=== PATIENT | female | born 1955 | race Two or more races ===

== ENCOUNTER 2024-02-25 09:22 | Inpatient (IN) | payer MEDICAID, OTHER ==
[~2024-02-25] VITALS: Ht 149.9 cm; Wt 61.8 kg
[2024-02-25 10:24] LABS: Urine Bacteria FEW /hpf (None Seen); Urine Blood Negative /uL (Negative); Urine Clarity Turbid (Clear); Urine Color Yellow (Yellow); Urine Hyaline Cast FEW /lpf (0 - 2); Urine Mucus FEW (None Seen); Urine Protein, UAD 3+ (Negative); Urine Specific Gravity 1.023 (1.001-1.035); Urine Urobilinogen Normal (Negative); Urine WBC 76 /hpf (0 - 5); Urine WBC Clumps PRESENT /hpf (None Seen)
[2024-02-25 10:54] LABS: Basophils # (auto) 0 10 ^3/uL (0-0.2); Basophils % (auto) 0.3 % (0.0-2.0); Eosinophils # (auto) 0 10 ^3/uL (0-0.8); Eosinophils % (auto) 0.7 % (0.0-7.0); Hematocrit 47.2 % (36.0-46.0); Hemoglobin 16.6 g/dL (12.2-16.2); Lymphocytes # (auto) 1.7 10 ^3/uL (0.4-5.4); Lymphocytes % (auto) 25.6 % (10.0-50.0); Mean Corpuscular Hemoglobin 31.5 pg (28.0-32.0); Mean Corpuscular Hgb Conc. 35.2 g/dL (32.0-36.0); Mean Corpuscular Volume 89.5 fL (80.0-100.0); Monocytes # (auto) 0.8 10 ^3/uL (0-1.3); Monocytes % (auto) 12.2 % (0.0-12.0); Neutrophils % (auto) 61.2 % (37.0-80.0); Nucleated Red Blood Cells % 0.2 %; Platelet Count (auto) 254 10^3/uL (140-450); Red Blood Cells 5.27 10^6/uL (4.0-5.20); White Blood Cell 6.6 10^3/uL (4.4-10.8)
[2024-02-25] MEDS: SODIUM CHLORIDE 0.9% 1,000 ML IV ONE (10:59)
[2024-02-25] MEDS: ONDANSETRON HCL 4 MG/2 ML VIAL IV ONE (11:03)
[2024-02-25 11:06] LABS: Chloride 102 mmol/L (98-107); Potassium 3.1 mmol/L (3.5-5.1); Sodium 137 mmol/L (136-145)
[2024-02-25 11:07] LABS: Anion Gap 8 (5-15); Carbon Dioxide 27 mmol/L (20-31)
[2024-02-25 11:12] LABS: BUN/Creatinine Ratio 7.4 (10.0-20.0); Blood Urea Nitrogen 7 mg/dL (9-23); Glucose 178 mg/dL (74-106)
[2024-02-25] MEDS ORDERED: DOCUSATE SOD 100 MG CAP PO PRN (17:15)
[2024-02-25] MEDS ORDERED: DEXTROSE (50%) 50ML SYRG IV PRN (17:15)
[2024-02-25] MEDS ORDERED: NITROGLYCERIN 0.4 MG SL TAB SL PRN (17:15)
[2024-02-25 17:33] LABS: Phosphorus 3.1 mg/dL (2.4-5.1)
[2024-02-25] MEDS: ACCU-CHEK COMFORT CURVE STRIP VI SCH (18:00)
[2024-02-25] MEDS: SODIUM CHLORIDE 0.9% 1,000 ML IV SCH (19:09)
[2024-02-25] MEDS: ONDANSETRON HCL 4 MG/2 ML VIAL IV PRN (19:15)
[2024-02-25] MEDS: PANTOPRAZOLE 40 MG/10 ML VIAL INJ IV ONE (19:15)
[2024-02-25] MEDS: POTASSIUM EFFERVESENT TAB 25 MEQ PO ONE (19:15)
[2024-02-25] MEDS: cefTRIAXone 1GM/50ML D5W 50 ML IV ONE (19:16)
[2024-02-25] MEDS: InsuLIN REG 1unit/0.01ml Soln (100units/ml) SC SCH (19:44)
[2024-02-25 19:50] VITALS: PULSE 71; RESP 16; O2SAT 94
[2024-02-25 22:00] VITALS: BP_SYST 123; BP_DIAS 51; BP_DIAS 57; PULSE 63; RESP 18; TEMP 98.4; O2SAT 93
[2024-02-25] MEDS: SUCRALFATE 1 GM/10 ML ORAL SUSP PO SCH (22:17)
[2024-02-25] MEDS ORDERED: METF-370 PO (23:05)
[2024-02-26 01:01] VITALS: BP 111/51; PULSE 60; RESP 18; TEMP 97.9; O2SAT 92
[2024-02-26 04:47] VITALS: BP 133/54; PULSE 60; RESP 19; TEMP 97.8; O2SAT 92
[2024-02-26 06:55] LABS: Basophils # (auto) 0 10 ^3/uL (0-0.2); Basophils % (auto) 0.3 % (0.0-2.0); Eosinophils # (auto) 0.1 10 ^3/uL (0-0.8); Eosinophils % (auto) 1.5 % (0.0-7.0); Hematocrit 38.8 % (36.0-46.0); Hemoglobin 13.3 g/dL (12.2-16.2); Lymphocytes # (auto) 2.2 10 ^3/uL (0.4-5.4); Lymphocytes % (auto) 31.4 % (10.0-50.0); Mean Corpuscular Hemoglobin 30.4 pg (28.0-32.0); Mean Corpuscular Hgb Conc. 34.2 g/dL (32.0-36.0); Monocytes # (auto) 0.9 10 ^3/uL (0-1.3); Monocytes % (auto) 13.1 % (0.0-12.0); Neutrophils # (auto) 3.7 10 ^3/uL (1.6-8.6); Neutrophils % (auto) 53.7 % (37.0-80.0); Platelet Count (auto) 226 10^3/uL (140-450); Red Blood Cells 4.35 10^6/uL (4.0-5.20); Red Cell Distribution Width 13.9 % (11.8-14.3)
[2024-02-26 07:18] LABS: Alanine Aminotransferase 12 U/L (7-40); Albumin 3.5 g/dL (3.2-4.8); Alkaline Phosphatase 75 U/L (46-116); Anion Gap 6 (5-15); Aspartate Aminotransferase 14 U/L (13-40); BUN/Creatinine Ratio 11.3 (10.0-20.0); Blood Urea Nitrogen 8 mg/dL (9-23); Calcium 8.7 mg/dL (8.7-10.4); Carbon Dioxide 27 mmol/L (20-31); Chloride 108 mmol/L (98-107); Glucose 141 mg/dL (74-106); Potassium 3.5 mmol/L (3.5-5.1); Sodium 141 mmol/L (136-145)
[2024-02-26 07:19] LABS: Bilirubin, Total 0.4 mg/dL (0.2-1.0); Total Protein 5.6 g/dL (5.7-8.2)
[2024-02-26 09:00] VITALS: BP 107/51; PULSE 58; RESP 18; TEMP 97.9; O2SAT 92
[2024-02-26] MEDS: cefTRIAXone 1GM/50ML D5W 50 ML IV SCH (09:38)
[2024-02-26] MEDS: PANTOPRAZOLE 40 MG/10 ML VIAL INJ IV SCH (09:38)
[2024-02-26 12:50] VITALS: BP 114/50; PULSE 61; RESP 20; TEMP 98.1; O2SAT 92
[2024-02-26] MEDS: ACETAMINOPHEN 500 MG TAB PO PRN (14:08)
[2024-02-26] MEDS: AZITHROMYCIN 250 MG TAB PO ONE (15:50)
[2024-02-26 17:00] VITALS: BP 143/58; PULSE 59; RESP 20; TEMP 97.5; O2SAT 94
[2024-02-26 22:00] VITALS: BP 158/74; PULSE 75; RESP 15; TEMP 97.1; O2SAT 95
[2024-02-27] VITALS (14 sets, daily range): BP systolic 131–193; BP diastolic 52–75; PULSE 57–80; RESP 14–27; TEMP 97.3–98.5; O2SAT 91–98
[2024-02-27 07:25] LABS: Basophils # (auto) 0 10 ^3/uL (0-0.2); Basophils % (auto) 0.4 % (0.0-2.0); Eosinophils # (auto) 0.1 10 ^3/uL (0-0.8); Eosinophils % (auto) 1.5 % (0.0-7.0); Hematocrit 38.8 % (36.0-46.0); Hemoglobin 13.4 g/dL (12.2-16.2); Lymphocytes # (auto) 2.2 10 ^3/uL (0.4-5.4); Lymphocytes % (auto) 33.3 % (10.0-50.0); Mean Corpuscular Hemoglobin 31.5 pg (28.0-32.0); Mean Corpuscular Hgb Conc. 34.7 g/dL (32.0-36.0); Mean Corpuscular Volume 90.8 fL (80.0-100.0); Monocytes # (auto) 0.7 10 ^3/uL (0-1.3); Monocytes % (auto) 10.5 % (0.0-12.0); Neutrophils # (auto) 3.6 10 ^3/uL (1.6-8.6); Neutrophils % (auto) 54.3 % (37.0-80.0); Nucleated Red Blood Cells % 0.1 %; Platelet Count (auto) 238 10^3/uL (140-450); Red Blood Cells 4.27 10^6/uL (4.0-5.20); White Blood Cell 6.7 10^3/uL (4.4-10.8)
[2024-02-27 07:39] LABS: Anion Gap 6 (5-15); Carbon Dioxide 27 mmol/L (20-31); Chloride 110 mmol/L (98-107); Potassium 3.8 mmol/L (3.5-5.1); Sodium 143 mmol/L (136-145)
[2024-02-27 07:40] LABS: Calcium 8.9 mg/dL (8.7-10.4)
[2024-02-27 07:45] LABS: Glucose 136 mg/dL (74-106)
[2024-02-27 07:47] LABS: BUN/Creatinine Ratio 8.2 (10.0-20.0); Blood Urea Nitrogen < 5 mg/dL (9-23)
[2024-02-27] MEDS: AZITHROMYCIN 250 MG TAB PO SCH (09:48)
[2024-02-27] MEDS: MORPHINE SULFATE INJ 2 MG/ml SYRG IV PRN (11:45)
[2024-02-27] MEDS ORDERED: hydrALAZINE HCL 20 MG/ML VL IV PRN (12:45)
[2024-02-27] MEDS: hydrALAZINE HCL 20 MG/ML VL IV ONE (13:42)
[2024-02-27] MEDS: ATORVASTATIN 20 MG TAB PO ONE (15:14)
[2024-02-27] MEDS: ASPirin 81 mg TAB PO ONE (15:14)
[2024-02-27] MEDS ORDERED: cloNIDine 0.1 mg/24hr 7 DAY PATCH TD SCH (15:15)
[2024-02-27] MEDS: ENOXAPARIN SOD 80 MG/0.8ML SYRINGE SC ONE (15:15)
[2024-02-27] MEDS: amLODIPine BESYLATE 5 MG TAB PO SCH (17:48)
[2024-02-27] MEDS: LOSARTAN POTASSIUM 50 MG TAB PO SCH (17:49)
[2024-02-27] MEDS: ATORVASTATIN 20 MG TAB PO SCH (21:38)
[2024-02-27] MEDS: ENOXAPARIN SOD 80 MG/0.8ML SYRINGE SC SCH (21:38)
[2024-02-28] VITALS (23 sets, daily range): BP systolic 113–145; BP diastolic 52–64; PULSE 51–101; RESP 12–27; TEMP 97.3–98.6; O2SAT 91–99
[2024-02-28 04:28] LABS: Basophils # (auto) 0 10 ^3/uL (0-0.2); Basophils % (auto) 0.4 % (0.0-2.0); Eosinophils # (auto) 0.1 10 ^3/uL (0-0.8); Eosinophils % (auto) 1.4 % (0.0-7.0); Hematocrit 40.1 % (36.0-46.0); Hemoglobin 13.5 g/dL (12.2-16.2); Lymphocytes # (auto) 2.2 10 ^3/uL (0.4-5.4); Lymphocytes % (auto) 30.3 % (10.0-50.0); Mean Corpuscular Hemoglobin 30.1 pg (28.0-32.0); Mean Corpuscular Hgb Conc. 33.6 g/dL (32.0-36.0); Mean Corpuscular Volume 89.4 fL (80.0-100.0); Monocytes # (auto) 0.7 10 ^3/uL (0-1.3); Neutrophils # (auto) 4.3 10 ^3/uL (1.6-8.6); Neutrophils % (auto) 58.9 % (37.0-80.0); Platelet Count (auto) 270 10^3/uL (140-450); Red Blood Cells 4.49 10^6/uL (4.0-5.20); Red Cell Distribution Width 13.9 % (11.8-14.3); White Blood Cell 7.3 10^3/uL (4.4-10.8)
[2024-02-28 04:46] LABS: INR 1.13 (0.9-1.15); Partial Thromboplastin Time 34.8 SEC (24.5-34.5); Prothrombin Time 11.9 sec (9.3-11.8)
[2024-02-28 04:49] LABS: Alanine Aminotransferase 14 U/L (7-40); Alkaline Phosphatase 79 U/L (46-116); Anion Gap 6 (5-15); Aspartate Aminotransferase 29 U/L (13-40); Calcium 9.2 mg/dL (8.7-10.4); Carbon Dioxide 28 mmol/L (20-31); Chloride 109 mmol/L (98-107); Glucose 162 mg/dL (74-106); Potassium 3.1 mmol/L (3.5-5.1); Sodium 143 mmol/L (136-145)
[2024-02-28 04:50] LABS: Bilirubin, Total 0.5 mg/dL (0.2-1.0)
[2024-02-28 04:59] LABS: BUN/Creatinine Ratio 8.5 (10.0-20.0); Blood Urea Nitrogen < 5 mg/dL (9-23)
[2024-02-28 05:21] LABS: Albumin 3.7 g/dL (3.2-4.8)
[2024-02-28] MEDS: POTASSIUM CHL 20MEQ/100ML 100 ML IV ONE (07:08)
[2024-02-28 09:01] LABS: Hepatitis B Surface Antigen Negative (Negative)
[2024-02-28 09:22] LABS: Hepatitis C Antibody Negative (Negative)
[2024-02-28] MEDS: ASPirin 81 mg TAB PO SCH (10:08)
[2024-02-28] MEDS: HEPARIN IN NS 1000Units/500mL 1,500 ML ONE (10:56)
[2024-02-28] MEDS: IODIXANOL 320MG/ML 100ML BTL IV ONE (10:56)
[2024-02-28] MEDS: POTASSIUM CHLORIDE 20 MEQ, LIDOCAINE 1% (LOCAL ANESTH.) 2 ML in SODIUM CHL 0.9% 100 ML IV ONE (12:13)
[2024-02-28] MEDS: VERAPAMIL 2.5MG/ML INJ 2ML VIAL IV ONE (13:04)
[2024-02-28] MEDS: fentaNYL CITRATE 100 MCG/2 ML VL ONE (13:04)
[2024-02-28] MEDS: ANGIOMAX 250 MG VIAL IV ONE (13:04)
[2024-02-28] MEDS: LIDOCAINE 2%HCL (LOCAL ANESTH.) INJ 20ML MDV ONE (13:05)
[2024-02-28] MEDS: SODIUM CHL 0.9% 0 ML ONE (13:05)
[2024-02-28] MEDS: HEPARIN SODIUM (PORCINE) 5000 UNITS/ML 1ML VIAL ONE (13:05)
[2024-02-28] MEDS: MIDAZOLAM HCL 2MG/2ML 2ml VIAL (1mg/ml) ONE (13:05)
[2024-02-28] MEDS: CLOPIDOGREL BISULFATE 75 MG TAB PO ONE (16:36)
[2024-02-29 05:00] VITALS: BP 142/62; PULSE 74; RESP 21; TEMP 98.2; O2SAT 98
[2024-02-29 06:34] LABS: Basophils # (auto) 0 10 ^3/uL (0-0.2); Basophils % (auto) 0.4 % (0.0-2.0); Eosinophils # (auto) 0.1 10 ^3/uL (0-0.8); Eosinophils % (auto) 1.2 % (0.0-7.0); Hematocrit 41.7 % (36.0-46.0); Hemoglobin 14.2 g/dL (12.2-16.2); Lymphocytes # (auto) 2.5 10 ^3/uL (0.4-5.4); Lymphocytes % (auto) 27.2 % (10.0-50.0); Mean Corpuscular Hemoglobin 30.4 pg (28.0-32.0); Mean Corpuscular Volume 89.5 fL (80.0-100.0); Monocytes # (auto) 0.7 10 ^3/uL (0-1.3); Monocytes % (auto) 7.9 % (0.0-12.0); Neutrophils # (auto) 5.8 10 ^3/uL (1.6-8.6); Neutrophils % (auto) 63.3 % (37.0-80.0); Platelet Count (auto) 310 10^3/uL (140-450); Red Blood Cells 4.66 10^6/uL (4.0-5.20); Red Cell Distribution Width 13.8 % (11.8-14.3); White Blood Cell 9.1 10^3/uL (4.4-10.8)
[2024-02-29 06:57] LABS: Alanine Aminotransferase 13 U/L (7-40); Albumin 3.8 g/dL (3.2-4.8); Alkaline Phosphatase 89 U/L (46-116); Anion Gap 10 (5-15); Aspartate Aminotransferase 13 U/L (13-40); Blood Urea Nitrogen 11 mg/dL (9-23); Calcium 9.3 mg/dL (8.7-10.4); Carbon Dioxide 27 mmol/L (20-31); Chloride 107 mmol/L (98-107); Glucose 156 mg/dL (74-106); Potassium 3.2 mmol/L (3.5-5.1); Sodium 144 mmol/L (136-145)
[2024-02-29 06:58] LABS: Bilirubin, Total 0.6 mg/dL (0.2-1.0); Total Protein 6.2 g/dL (5.7-8.2)
[2024-02-29 08:00] VITALS: PULSE 54
[2024-02-29 09:00] VITALS: BP 139/63; PULSE 57; RESP 17; TEMP 97.7; O2SAT 98
[2024-02-29 09:10] VITALS: PULSE 71
[2024-02-29] MEDS: CLOPIDOGREL BISULFATE 75 MG TAB PO SCH (09:17)
[2024-02-29] MEDS: POTASSIUM EFFERVESENT TAB 25 MEQ PO ONE (09:34)
[2024-02-29] MEDS ORDERED: AMLO1TAB23 PO (12:06)
[2024-02-29] MEDS ORDERED: PANT40TA2 PO (12:06)
[2024-02-29] MEDS ORDERED: ATOR-507 PO (12:06)
[2024-02-29] MEDS ORDERED: ASPI1TAB19 PO (12:06)
[2024-02-29] MEDS ORDERED: LOSA-534 PO (12:06)
[2024-02-29] MEDS ORDERED: CLOP75TA28 PO (12:06)
[2024-02-29 13:00] VITALS: BP 142/62; PULSE 67; RESP 23; TEMP 97.9; O2SAT 92
[2024-02-29] MEDS: NITROGLYCERIN 50MG/250ML 250 ML IV SCH (15:00)
== END 2024-02-29 15:46 | disposition home or self-care (01) | DRG 190 ==
LOC: ER 09:22 → OVERFLOW 17:13 → EAST 22:00 → ICU WEST 02-27 18:01 → TELE-EAST 02-28 15:57
PROVIDERS: ADMIT Internal Medicine; ATTEND Internal Medicine
PROC: 4A023N7 Measurement of Cardiac Sampling and Pressure, Left Heart, Percutaneous Approach (ICD-10-PCS; principal; 2024-02-28)
PROC: B211YZZ Fluoroscopy of Multiple Coronary Arteries using Other Contrast (ICD-10-PCS; 2024-02-28)
PROC: 05H933Z Insertion of Infusion Device into Right Brachial Vein, Percutaneous Approach (ICD-10-PCS; 2024-02-28)
PROC: B54MZZA Ultrasonography of Right Upper Extremity Veins, Guidance (ICD-10-PCS; 2024-02-28)
DX: I21.4 Non-ST elevation (NSTEMI) myocardial infarction (principal); E11.9 Type 2 diabetes mellitus without complications; E87.6 Hypokalemia; N30.00 Acute cystitis without hematuria; K52.9 Noninfective gastroenteritis and colitis, unspecified; I10 Essential (primary) hypertension; E66.9 Obesity, unspecified; I25.10 Atherosclerotic heart disease of native coronary artery without angina pectoris; I16.1 Hypertensive emergency; Z83.3 Family history of diabetes mellitus; Z91.199 Patient's noncompliance with other medical treatment and regimen due to unspecified reason; Z79.4 Long term (current) use of insulin; Z68.29 Body mass index [BMI] 29.0-29.9, adult
CPT/HCPCS: 36415; 71046; 71250; 74176; 80048; 80053; 81001; 82550; 82962; 83036; 83735; 84100; 84484; 85025; 85610; 85730; 86803; 87081; 87340; 93005; 93306; 93458; 96361; 96365; 96375; 99152; G0378; J1815; J2001; J2250; J2405; J2470; J3480; Q9967